=== PATIENT | male | born 1945 | race Caucasian/White ===

== ENCOUNTER 2020-08-21 11:11 | Emergency (ER) | payer OTHER, SELFPAY ==
[2020-08-21] MEDS ORDERED: NA CHLORIDE 0.9% 500 ML ONE (12:35)
[2020-08-21 12:52] LABS: Absolute Lymphocytes (CBC) 1.6 K/uL (0.7-4.9); Basophils % 0.5 % (0-1.3); Hematocrit 51.1 % (39.6-49.0); Lymphocytes % 19.6 % (15.3-44.8); MPV 9.1 fL (7.6-11.3); RBC Red Blood Cell Count 5.77 M/uL (4.33-5.43)
[2020-08-21 13:00] LABS: Albumin 4.3 g/dL (3.4-5.0); Bilirubin Direct 0.2 mg/dL (0-0.2); Bilirubin Total 0.9 mg/dL (0.2-1.0); Protein, Total 8.1 g/dL (6.4-8.2)
--- NOTE | 2020-08-21 13:09 | RAD REPORT ---
EXAM DESCRIPTION: CT - Abdomen Pelvis W Contrast - 08/21/2020 12:47 pm CLINICAL HISTORY: Abdominal pain COMPARISON: none. TECHNIQUE: Computed axial tomography of the abdomen pelvis was obtained. 100 cc Isovue-300 was admin istered intravenously. Oral contrast was not requested which limits evaluation of bowel. All CT scans are performed using dose optimization technique as appropriate and may include automated exposure control or mA/KV adjustment according to patient size. FINDINGS: Hepatic cysts. The largest measures 24 millimeters Spleen, pancreas and left adrenal unremarkable. 18 millimeter right adrenal mass. Small renal cysts. Small bilateral nonobstructing renal calculi Mild enlargement of the prostate gland. Diverticula stem from the colon without evidence of diverticulitis. Normal appendix Small to moderate bilateral inguinal hernias contain fat. Spondylosis involves the lumbar spine IMPRESSION: Small to moderate bilateral inguinal hernias 18 millimeter right adrenal mass may represent an adenoma or less likely metastasis. Nonemergent MRI adrenal gland recommended Small bilateral nonobstructing renal calculi
--- NOTE | 2020-08-21 14:15 | RAD REPORT ---
EXAM DESCRIPTION: Andrea Single View08/21/2020 1:41 pm CLINICAL HISTORY: Shortness of breath COMPARISON: none FINDINGS: Mid lungs are mildly hazy bilaterally The heart is normal size IMPRESSION: The lungs are mildly hazy bilaterally probably secondary to overlying soft tissue. If patricia esposito has clinical symptoms to suggest bilateral infiltrate then PA and lateral chest series would be recommended
[2020-08-21 15:58] LABS: Urine Bacteria <20 /HPF (NONE SEEN); Urine Culture Reflex Order NOT NEEDED; Urine RBC <5 /HPF (NONE SEEN)
[2020-08-21 16:22] LABS: Urine Blood NEGATIVE (NEG); Urine Glucose NEGATIVE (NEG); Urine Protein NEGATIVE (NEG); Urine Specific Gravity 1.015 (1.005-1.030)
--- NOTE | 2020-08-21 17:04 | RAD REPORT ---
EXAM DESCRIPTION: Andrea Govea And Arnie (2 Views)08/21/2020 3:22 pm CLINICAL HISTORY: Shortness of breath COMPARISON: August 21, 2020 FINDINGS: The lungs appear clear of acute infiltrate. The heart is normal size IMPRESSION: No acute abnormalities displayed
--- NOTE | 2020-08-21 17:12 | EDPHYS ---
Physician Documentation [facility] Name: Ruben Colby Age: 75 yrs Sex: Male : 1945 Arrival Date: 08/21/2020 Time: 11:13 Bed 5 Private MD: ED Physician Jimenez Rushing HPI: 08/21 15:07 This 75 yrs old Male presents to ER via Ambulatory with complaints of rn Abdominal Pain, Groin Pain, Leg Pain. 15:07 The patient presents with abdominal pain in the left lower quadrant, left groin. Onset: rn The symptoms/episode began/occurred 1 week(s) ago. The symptoms radiate to left leg. Associated signs and symptoms: Pertinent positives: fever, shortness of breath, Pertinent negatives: nausea and vomiting, blood in stools, chest pain, constipation, hematuria, nausea, testicular pain, vomiting, vomiting blood. The symptoms are described as achy, burning. Modifying factors: The symptoms are alleviated by nothing, the symptoms are aggravated by touching the area. Severity of pain: At its worst the pain was mild in the emergency department the pain is unchanged. The patient has not experienced similar symptoms in the past. The patient has not recently seen a physician. Reports here for left groin pain that radiates down left leg, no trauma, no vomiting/diarrhea. Noted to have low grade temp here and to be sob when changing to gown. . Historical: - Allergies: 11:33 No Known Allergies; iw - Home Meds: 11:33 Norvasc 10 mg Oral tab 1 tab once daily [Active]; atorvastatin 20 mg oral tab 1 tab iw once daily [Active]; - PMHx: 11:33 Hypertension; Hyperlipidemia; iw - PSHx: 11:33 Knee surgery; Tonsillectomy; iw - Immunization history:: Adult Immunizations not up to date. - Social history:: Smoking status: Patient denies any tobacco usage or history of. - Family history:: not pertinent. - Hospitalizations: : No recent hospitalization is reported. ROS: 15:07 Constitutional: + fever Eyes: Negative for injury, pain, redness, and discharge, ENT: rn Negative for injury, pain, and discharge, Cardiovascular: Negative for chest pain, palpitations, and edema, Respiratory: + sob Abdomen/GI: Negative for nausea, vomiting, diarrhea, and constipation, Back: Negative for injury and pain, MS/Extremity: Negative for injury and deformity, Skin: Negative for injury, rash, and discoloration, Neuro: Negative for headache, weakness, numbness, tingling, and seizure. Exam: 15:07 Constitutional: This is a well developed, well nourished patient who is awake, alert, rn and in no acute distress. Head/Face: Normocephalic, atraumatic. Cardiovascular: Tachycardic, regular Respiratory: No increased work of breathing, no retractions or nasal flaring. Abdomen/GI: soft, mild LLQ tenderness and left groin tenderness, no mass palpated, no skin changes Skin: Warm, dry MS/ Extremity: Pulses equal, no cyanosis. Neurovascular intact. Neuro: Awake and alert, GCS 15 Vital Signs: 11:29 BP 136 / 90; Pulse 112; Resp 18 S; Temp 99.3; Pulse Ox 95% on R/A; iw 11:40 BP 108 / 60; Pulse 75; Resp 17; Pulse Ox 97% on R/A; tw2 12:40 BP 160 / 94; Pulse 87; Resp 20; Pulse Ox 97% on R/A; tw2 13:40 BP 152 / 90; Pulse 84; Resp 20; Pulse Ox 95% on R/A; tw2 14:40 BP 137 / 88; Pulse 84; Resp 20; Pulse Ox 97% on R/A; tw2 15:40 BP 148 / 82; Pulse 89; Resp 20; Pulse Ox 95% on R/A; tw2 16:40 BP 142 / 79; Pulse 90; Resp 20; Pulse Ox 97% on R/A; tw2 17:19 BP 134 / 87; Pulse 84; Resp 19; Pulse Ox 97% on R/A; tw2 MDM: 11:42 Patient medically screened. rn 17:09 Differential diagnosis: diverticulitis, non-specific abd pain, Ureterolithiasis, rn urinary tract infection, kidney stone, hernia, viral syndrome, bronchitis. Data reviewed: vital signs, nurses notes, lab test result(s), radiologic studies, CT scan, plain films, and as a result, I will discharge patient. Counseling: I had a detailed discussion with the patient and/or guardian regarding: the historical points, exam findings, and any diagnostic results supporting the discharge/admit diagnosis, lab results, radiology results, the need for outpatient follow up, to return to the emergency department if symptoms worsen or persist or if there are any questions or concerns that arise at home. Special discussion: Based on the patient's Hx, exam, and Dx evaluation, there is no indication for emergent surgery or inpatient Tx. It is understood by the patient/guardian that if the Sx's persist or worsen they need to return immediately for re-evaluation. I discussed with the patient/guardian in detail that at this point there is no indication for admission to the hospital. It is understood, however, that if the symptoms persist or worsen the patient needs to return immediately for re-evaluation. Further emergent ED testing is not indicated at this point in time. I discussed with the patient/guardian in detail the need to arrange with the PCP or specialist further outpatient testing, MRI, Based on the history and exam findings, there is no indication for further emergent testing or inpatient evaluation. I discussed with the patient/guardian the need to see the general surgeon for further evaluation of the symptoms. I discussed with the patient/guardian the need to see the primary care provider for further evaluation of the symptoms. ED course: Notified of incidental adrenal gland finding, + inguinal hernias that explains patient's symptoms that he presented for today, neg cxr, most likely coming down with something, covid sent, will dc home with gen surg f/u, pcp f/u, and return precautions. . 08/21 11:57 Order name: CBC with Diff; Complete Time: 14:44 08/21 11:57 Order name: Basic Metabolic Panel; Complete Time: 14:44 08/21 11:57 Order name: COVID-19; Complete Time: 16:43 rn 08/21 11:57 Order name: Flu; Complete Time: 15:30 rn 08/21 11:57 Order name: Hepatic Function; Complete Time: 14:44 08/21 11:57 Order name: Lipase; Complete Time: 14:44 08/21 11:57 Order name: CT Abd/Pelvis - IV Contrast Only; Complete Time: 14:44 08/21 11:57 Order name: Procalcitonin; Complete Time: 14:44 08/21 11:57 Order name: Lactate; Complete Time: 14:44 08/21 11:57 Order name: BNP; Complete Time: 14:44 08/21 11:57 Order name: Urine Culture rn 08/21 11:57 Order name: Urine Microscopic Only; Complete Time: 16:11 rn 08/21 13:12 Order name: CREATININE WHOLE BLOOD; Complete Time: 14:44 EDMS 08/21 15:20 Order name: Urine Dipstick--Ancillary (enter results); Complete Time: 16:43 bd 08/21 11:57 Order name: IV Start; Complete Time: 12:31 rn 08/21 11:57 Order name: Labs collected and sent; Complete Time: 12:31 rn 08/21 11:57 Order name: XRAY Chest (1 view); Complete Time: 14:44 rn 08/21 11:57 Order name: Urine Dipstick-Ancillary (obtain specimen); Complete Time: 17:18 rn 08/21 14:45 Order name: XRAY Chest Pa And Lat (2 Views); Complete Time: 17:09 rn Administered Medications: 13:00 Drug: NS 0.9% 500 ml Route: IV; Rate: bolus; Site: left wrist; jl7 13:45 Follow up: Response: No adverse reaction; IV Status: Completed infusion; IV Intake: jl7 500ml Disposition: 08/21/20 17:11 Discharged to Home. Impression: Bilateral inguinal hernia, without obstruction or gangrene, Fever, unspecified. - Condition is Stable. - Discharge Instructions: Fever, Adult, Inguinal Hernia, Adult. - Prescriptions for Zithromax Z- Juan Pablo 250 mg Oral Tablet - take 1 tablet by ORAL route as directed for 5 days Day 1 - take two (2) tablets one time. Day 2, 3, 4 , 5 take one (1) tablet once daily.; 6 tablet. - Medication Reconciliation Form, Thank You Letter, Antibiotic Education, Prescription Opioid Use form. - Follow up: Private Physician; When: As needed; Reason: Recheck today's complaints, Re-evaluation by your physician. Follow up: Khris Lisa MD; When: As needed; Reason: Recheck today's complaints, Re-evaluation by your physician. - Problem is new. - Symptoms have improved. Signatures: Dispatcher [employer] EDCT Marie Turcios RN RN iw Nieto, Roman, MD MD rn Leal, Jahala, RN RN jl7 Corrections: (The following items were deleted from the chart) 17:17 17:11 08/21/2020 17:11 Discharged to Home. Impression: Bilateral inguinal hernia, rn without obstruction or gangrene; Fever, unspecified. Condition is Stable. Forms are Medication Reconciliation Form, Thank You Letter, Antibiotic Education, Prescription Opioid Use. Follow up: Private Physician; When: As needed; Reason: Recheck today's complaints, Re-evaluation by your physician. Problem is new. Symptoms have improved. rn 17:30 17:17 08/21/2020 17:11 Discharged to Home. Impression: Bilateral inguinal hernia, jl7 without obstruction or gangrene; Fever, unspecified. Condition is Stable. Discharge Instructions: Fever, Adult, Inguinal Hernia, Adult. Prescriptions for Zithromax Z-Juan Pablo 250 mg Oral Tablet - take 1 tablet by ORAL route as directed for 5 days Day 1 - take two (2) tablets one time. Day 2, 3, 4 , 5 take one (1) tablet once daily.; 6 tablet. and Forms are Medication Reconciliation Form, Thank You Letter, Antibiotic Education, Prescription Opioid Use. Follow up: Private Physician; When: As needed; Reason: Recheck today's complaints, Re-evaluation by your physician. Follow up: Khris Lisa; When: As needed; Reason: Recheck today's complaints, Re-evaluation by your physician. Problem is new. Symptoms have improved. rn
--- NOTE | 2020-08-21 17:12 | ER ---
Nurse's Notes [facility] Name: Ruben Colby Age: 75 yrs Sex: Male : 1945 Arrival Date: 08/21/2020 Time: 11:13 Bed 5 Private MD: Diagnosis: Bilateral inguinal hernia, without obstruction or gangrene;Fever, unspecified Presentation: 08/21 11:29 Chief complaint: Patient states: has pain in left groin area, feels like burning and iw numbness toward his knee, started a week ago, also has pain in lower abdomen, joints are achy. Coronavirus screen: Ebola Screen: Patient negative for fever greater than or equal to 101.5 degrees Fahrenheit, and additional compatible Ebola Virus Disease symptoms Patient denies exposure to infectious person. Patient denies travel to an Ebola-affected area in the 21 days before illness onset. No symptoms or risks identified at this time. Initial Sepsis Screen: Does the patient meet any 2 criteria? No. Patient's initial sepsis screen is negative. Does the patient have a suspected source of infection? No. Patient's initial sepsis screen is negative. Risk Assessment: Do you want to hurt yourself or someone else? Patient reports no desire to harm self or others. Onset of symptoms was August 14, 2020. 11:29 Method Of Arrival: Ambulatory iw 11:29 Acuity: PHIL 4 iw 11:29 Acuity: PHIL 3 iw 11:31 Coronavirus screen: At this time, the client does not indicate any symptoms associated iw with coronavirus-19. 11:39 Chief complaint: Patient states: pt also states he has had SOB for the past week also. iw Historical: - Allergies: 11:33 No Known Allergies; iw - Home Meds: 11:33 Norvasc 10 mg Oral tab 1 tab once daily [Active]; atorvastatin 20 mg oral tab 1 tab iw once daily [Active]; - PMHx: 11:33 Hypertension; Hyperlipidemia; iw - PSHx: 11:33 Knee surgery; Tonsillectomy; iw - Immunization history:: Adult Immunizations not up to date. - Social history:: Smoking status: Patient denies any tobacco usage or history of. - Family history:: not pertinent. - Hospitalizations: : No recent hospitalization is reported. Screenin:00 Abuse screen: Denies threats or abuse. Denies injuries from another. Nutritional jl7 screening: No deficits noted. Tuberculosis screening: No symptoms or risk factors identified. Fall Risk IV access (20 points). Assessment: 11:42 Reassessment: pt became SOB when he was changing into his gown, SpO2 dropped to 87%, pt iw stated he has been having SOB for past week. 12:30 General: Appears in no apparent distress. uncomfortable, Behavior is calm, cooperative, jl7 appropriate for age. Pain: Complains of pain in left leg. Neuro: Level of Consciousness is awake, alert, obeys commands, Oriented to person, place, time, situation. Cardiovascular: Patient's skin is warm and dry. Respiratory: Airway is patent Respiratory effort is even, unlabored, Respiratory pattern is regular, symmetrical. GI: Abdomen is non-distended. Derm: Skin is pink, warm \T\ dry. 13:30 Reassessment: Patient appears in no apparent distress at this time. No changes from jl7 previously documented assessment. Patient and/or family updated on plan of care and expected duration. Pain level reassessed. Patient is alert, oriented x 3, equal unlabored respirations, skin warm/dry/pink. 14:30 Reassessment: Patient appears in no apparent distress at this time. No changes from jl7 previously documented assessment. Patient and/or family updated on plan of care and expected duration. Pain level reassessed. Patient is alert, oriented x 3, equal unlabored respirations, skin warm/dry/pink. 15:30 Reassessment: Patient appears in no apparent distress at this time. No changes from jl7 previously documented assessment. Patient and/or family updated on plan of care and expected duration. Pain level reassessed. Patient is alert, oriented x 3, equal unlabored respirations, skin warm/dry/pink. 16:30 Reassessment: Patient appears in no apparent distress at this time. No changes from jl7 previously documented assessment. Patient and/or family updated on plan of care and expected duration. Pain level reassessed. Patient is alert, oriented x 3, equal unlabored respirations, skin warm/dry/pink. 17:20 Reassessment: Patient appears in no apparent distress at this time. No changes from tw2 previously documented assessment. Patient and/or family updated on plan of care and expected duration. Pain level reassessed. Patient is alert, oriented x 3, equal unlabored respirations, skin warm/dry/pink. Vital Signs: 11:29 BP 136 / 90; Pulse 112; Resp 18 S; Temp 99.3; Pulse Ox 95% on R/A; iw 11:40 BP 108 / 60; Pulse 75; Resp 17; Pulse Ox 97% on R/A; tw2 12:40 BP 160 / 94; Pulse 87; Resp 20; Pulse Ox 97% on R/A; tw2 13:40 BP 152 / 90; Pulse 84; Resp 20; Pulse Ox 95% on R/A; tw2 14:40 BP 137 / 88; Pulse 84; Resp 20; Pulse Ox 97% on R/A; tw2 15:40 BP 148 / 82; Pulse 89; Resp 20; Pulse Ox 95% on R/A; tw2 16:40 BP 142 / 79; Pulse 90; Resp 20; Pulse Ox 97% on R/A; tw2 17:19 BP 134 / 87; Pulse 84; Resp 19; Pulse Ox 97% on R/A; tw2 ED Course: 11:13 Patient arrived in ED. ag5 11:31 Triage completed. iw 11:33 Arm band placed on. iw 11:42 Jimenez Rushing MD is Attending Physician. rn 12:00 Patient has correct armband on for positive identification. Placed in gown. Bed in low jl7 position. Call light in reach. Side rails up X 1. Pulse ox on. NIBP on. 12:06 Lora Moreno, RN is Primary Nurse. jl7 12:31 Initial lab(s) drawn, by me, sent to lab. Inserted saline lock: 20 gauge in left wrist, em1 using aseptic technique. Blood collected. 12:47 CT Abd/Pelvis - IV Contrast Only In Process Unspecified. EDMS 13:41 XRAY Chest (1 view) In Process Unspecified. EDMS 15:22 XRAY Chest Pa And Lat (2 Views) In Process Unspecified. EDMS 17:17 Khris Lisa MD is Referral Physician. rn 17:29 No provider procedures requiring assistance completed. IV discontinued, intact, jl7 bleeding controlled, No redness/swelling at site. Pressure dressing applied. Administered Medications: 13:00 Drug: NS 0.9% 500 ml Route: IV; Rate: bolus; Site: left wrist; jl7 13:45 Follow up: Response: No adverse reaction; IV Status: Completed infusion; IV Intake: jl7 500ml Intake: 13:45 IV: 500ml; Total: 500ml. jl7 Outcome: 17:11 Discharge ordered by . rn 17:29 Discharged to home ambulatory. shukri 17:29 Condition: stable 17:29 Discharge instructions given to patient, Instructed on discharge instructions, follow up and referral plans. medication usage, Demonstrated understanding of instructions, follow-up care, medications, Prescriptions given X 1. 17:30 Patient left the ED. jl7 Addendum: 08/23/2020 07:34 Addendum: COVID-19 Result: Negative result given to RN to notify pt. Attempted to s s contact pt regarding negative COVID-19 swab results. Left voice mail. Signatures: Dispatcher [employer] Marie Chavarria, RN ANCELMO Jimenez Rushing MD MD rn Martinez, Eric em1 Nida Browne RN RN Zenobia Latif RN RN 2 Lora Moreno RN RN jl7 Walter Pickett ag5 Corrections: (The following items were deleted from the chart) 08/21 11:32 11:29 Ebola Screen: Patient negative for fever greater than or equal to 101.5 degrees iw Fahrenheit, and additional compatible Ebola Virus Disease symptoms Patient denies exposure to infectious person. Patient denies travel to an Ebola-affected area in the 21 days before illness onset. No symptoms or risks identified at this time. iw
[2020-08-21 22:48] VITALS: TEMP 99.3
[2020-08-21 22:57] VITALS: O2SAT 97
[2020-08-21 22:59] VITALS: BP 134/87
== END 2020-08-21 17:30 | disposition home or self-care (01) ==
LOC: ER 11:11
DX: K40.20 Bilateral inguinal hernia, without obstruction or gangrene, not specified as recurrent (principal); R50.9 Fever, unspecified; Z20.828 Contact with and (suspected) exposure to other viral communicable diseases; I10 Essential (primary) hypertension
CPT/HCPCS: 87088; 85025; 87086; 80048; 36415; 82565; 80076; 83605; 83690; 84145; 83880; 87804 ×2; 74177; 71045; 71046; 96360; 99284; U0002; Q9967; J7040; 81003; 81015

== ENCOUNTER 2020-08-22 15:43 | Emergency (ER) | payer OTHER ==
[2020-08-22 18:04] LABS: Absolute Lymphocytes (CBC) 1.5 K/uL (0.7-4.9); Basophils % 0.3 % (0-1.3); Hematocrit 48.6 % (39.6-49.0); MPV 9.1 fL (7.6-11.3); RBC Red Blood Cell Count 5.54 M/uL (4.33-5.43)
[2020-08-22 18:14] LABS: Albumin 4.2 g/dL (3.4-5.0); Bilirubin Direct 0.2 mg/dL (0-0.2); Bilirubin Total 0.9 mg/dL (0.2-1.0); Potassium 4.1 mmol/L (3.5-5.1); Protein, Total 7.7 g/dL (6.4-8.2)
[2020-08-22] MEDS ORDERED: MORPHINE 2 MG/ML SYR ONE (18:15)
[2020-08-22] MEDS ORDERED: ONDANSETRON 4 MG/2 ML VIAL ONE (18:15)
[2020-08-22] MEDS ORDERED: ACETAMINOPHEN 325 MG TABLET ONE (18:21)
--- NOTE | 2020-08-22 19:37 | RAD REPORT ---
EXAM DESCRIPTION: MRI - Lumbar Spine Wo Con- 08/22/2020 7:26 pm CLINICAL HISTORY: leg numbness, weakness Radiculopathy COMPARISON: No comparisons FINDINGS: Vertebral body heights are within normal limits. Diffuse disc desiccation. No fracture is suspected. The conus medullaris terminates at a normal level. No thickening of the cauda equina or clumping of n erve roots seen. L1-2 level: Mild posterior disc bulge is present without canal or foraminal stenosis. L2-3 level: Disc thinning with mild posterior disc bulge with mild facet hypertrophy. No canal or for aminal stenosis. L3-4 level: Broad-based posterior disc bulge is present with moderate facet and ligamentum flavum hyp ertrophy. Mild central canal narrowing is present. No significant exit foraminal stenosis. L4-5 level: Degenerative disc disease with moderate posterior disc bulge with marked facet and ligame nt flavum hypertrophy. Findings result in moderate to significant central canal stenosis and bilatera l lateral recess narrowing. Moderate bilateral exit foraminal narrowing. L5-S1 level: Degenerative anterolisthesis is present with evidence of significant facet and ligamentu m flavum hypertrophy. Mild central canal narrowing is present moderate right-sided exit foraminal jewels nosis. IMPRESSION: Moderately severe lower lumbar degenerative changes are present, most notable at L3-4 an d L4-5.
--- NOTE | 2020-08-22 19:55 | ER ---
Nurse's Notes [facility] Name: Ruben Colby Age: 75 yrs Sex: Male : 1945 Arrival Date: 08/22/2020 Time: 15:44 Bed 17 Private MD: Diagnosis: Sciatica, unspecified side Presentation: 08/22 16:01 Chief complaint: Patient states: "my hips and my legs through my butt and feet are jd3 feeling numb and are painful and it started yesterday. I was here because of a hernias and lung infection yesterday and that's why I feel like my feet and legs are tingling and maybe I am not getting enough blood flow with those hernias. Coronavirus screen: cough unrelated to allergies, fever, Client presents with at least one sign or symptom that may indicate coronavirus-19. Standard/surgical mask placed on the client. Provider contacted for isolation considerations. Ebola Screen: Patient negative for fever greater than or equal to 101.5 degrees Fahrenheit, and additional compatible Ebola Virus Disease symptoms. Initial Sepsis Screen: Does the patient meet any 2 criteria? No. Patient's initial sepsis screen is negative. Does the patient have a suspected source of infection? No. Patient's initial sepsis screen is negative. Risk Assessment: Do you want to hurt yourself or someone else? Patient reports no desire to harm self or others. Onset of symptoms was August 22, 2020. 16:01 Method Of Arrival: Ambulatory jd3 16:01 Acuity: PHIL 3 jd3 16:08 Note home medications taken at 0800 today, Ibuprofen taken at 1200. jd3 Historical: - Allergies: 16:05 No Known Allergies; jd3 - Home Meds: 16:05 atorvastatin 20 mg Oral tab 1 tab once daily [Active]; Norvasc 10 mg Oral tab 1 tab jd3 once daily [Active]; - PMHx: 16:05 Hyperlipidemia; Hypertension; jd3 - PSHx: 16:05 Tonsillectomy; Knee surgery; jd3 - Immunization history:: Adult Immunizations up to date. - Social history:: Smoking status: Patient denies any tobacco usage or history of. Screenin:20 Abuse screen: Denies threats or abuse. Nutritional screening: No deficits noted. rb3 Tuberculosis screening: No symptoms or risk factors identified. Fall Risk None identified. Assessment: 16:20 General: Appears in no apparent distress. comfortable, Behavior is calm, cooperative. rb3 Neuro: Level of Consciousness is awake, alert, obeys commands, Oriented to person, place, time, situation, Reports numbness in buttocks, legs, and hips. Cardiovascular: Capillary refill < 3 seconds Patient's skin is warm and dry. Respiratory: Airway is patent Respiratory effort is even, unlabored, Respiratory pattern is regular, symmetrical. GI: No signs and/or symptoms were reported involving the gastrointestinal system. : Reports he has to concentrate in order to urinate. Musculoskeletal: Range of motion: intact in all extremities. 17:20 Reassessment: Patient appears in no apparent distress at this time. No changes from rb3 previously documented assessment. 18:12 Reassessment: Patient appears in no apparent distress at this time. Patient and/or rb3 family updated on plan of care and expected duration. Pain level reassessed. Patient is alert, oriented x 3, equal unlabored respirations, skin warm/dry/pink. 20:27 Reassessment: Patient appears in no apparent distress at this time. Patient and/or jd3 family updated on plan of care and expected duration. Pain level reassessed. Patient is alert, oriented x 3, equal unlabored respirations, skin warm/dry/pink. Patient states feeling better. 20:27 Pain: Denies pain. jd3 Vital Signs: 16:05 BP 124 / 84; Pulse 100; Resp 19 S; Temp 98.7(O); Pulse Ox 95% on R/A; Weight 95.25 kg jd3 (R); Height 5 ft. 6 in. (167.64 cm) (R); Pain 3/10; 17:00 BP 155 / 94; Pulse 91; Resp 18; Pulse Ox 97% ; rb3 17:57 BP 148 / 61; Pulse 95; Resp 19; Pulse Ox 95% ; rb3 18:15 BP 146 / 87; Pulse 99; Resp 20; Pulse Ox 95% ; rb3 16:05 Body Mass Index 33.89 (95.25 kg, 167.64 cm) jd3 ED Course: 15:44 Patient arrived in ED. as 16:04 Triage completed. jd3 16:08 Arm band placed on. [facility] 16:20 Ruben Hall PA is PHCP. [facility] 16:20 Joby Alston MD is Attending Physician. m 16:20 Patient has correct armband on for positive identification. Placed in gown. Bed in low rb3 position. Call light in reach. Side rails up X 1. Pulse ox on. NIBP on. Warm blanket given. 16:29 Madonna Lott, RN is Primary Nurse. rb3 17:40 Inserted saline lock: 20 gauge in left antecubital area, using aseptic technique. rb3 ,using aseptic technique. IV inserted by [employer] operator. Blood collected. 19:26 MRI Lumbar Spine wo Con In Process Unspecified. EDMS 20:25 No provider procedures requiring assistance completed. IV discontinued, intact, jd3 bleeding controlled, No redness/swelling at site. Pressure dressing applied. Administered Medications: 18:05 Drug: Zofran (Ondansetron) 4 mg Route: IVP; Site: left antecubital; rb3 19:00 Follow up: Response: No adverse reaction jd3 18:11 Drug: Tylenol 650 mg Route: PO; rb3 19:00 Follow up: Response: No adverse reaction jd3 18:12 Not Given (Patient Refused): morphine 2 mg IVP once; (PAIN>8) RASS on ADMN: Combtv4, rb3 Very Agttd3, Agttd2, Rstlss1, AlertClm0, Drwsy-1, LtSdtn-2, ModSdtn-3, DpSdtn-4, UnArsble-5 x2 20:24 Drug: Decadron - Dexamethasone 10 mg Route: IVP; Site: left antecubital; jd3 20:28 Follow up: Response: No adverse reaction jd3 Outcome: 19:55 Discharge ordered by . [facility] 20:27 Discharged to home ambulatory. jd3 20:27 Condition: stable 20:27 Discharge instructions given to patient, Instructed on discharge instructions, follow up and referral plans. medication usage, Demonstrated understanding of instructions, follow-up care, medications, Prescriptions given X 2. 20:28 Patient left the ED. jd3 Signatures: Dispatcher [employer] EDMS Ruben Hall PA PA jmm Martinez, Amelia as Davies, Jonathon, RN RN jd3 Madonna Lott, ANCELMO RN rb3 Corrections: (The following items were deleted from the chart) 16:04 16:01 Chief complaint: Patient states: "my hips and my legs through my butt and feet jd3 are feeling numb and are painful. I was here because of a hernias and lung infection yesterday and that's why I feel like my feet and legs are tingling and maybe I am not getting enough blood flow with those hernias jd3 16:09 16:08 Note home medications taken at 0800 today jd3 jd3
--- NOTE | 2020-08-22 19:56 | EDPHYS ---
Physician Documentation [facility] Name: Ruben Colby Age: 75 yrs Sex: Male : 1945 Arrival Date: 08/22/2020 Time: 15:44 Bed 17 Private MD: ED Physician Joby Alston HPI: 08/22 16:21 This 75 yrs old Male presents to ER via Ambulatory with complaints of jmm Numbness. 16:21 The patient presents with numbness. Onset: The symptoms/episode began/occurred 1 day(s) jmm ago. Modifying factors: The symptoms are alleviated by nothing. the symptoms are aggravated by nothing. This is a 75 year old male with a history of hlp, htn that presents to the ED with complaints of numbness to his legs along with bilateral hip pain beginning yesterday. patient was seen for abdominal pain yesterday and diagnosed with bilateral hernias. Patient states having a follow up appt with Dr. Lisa tomorrow morning. Patient states he has had difficulty urinating. Denies any leg weakness. . Historical: - Allergies: 16:05 No Known Allergies; jd3 - Home Meds: 16:05 atorvastatin 20 mg Oral tab 1 tab once daily [Active]; Norvasc 10 mg Oral tab 1 tab jd3 once daily [Active]; - PMHx: 16:05 Hyperlipidemia; Hypertension; jd3 - PSHx: 16:05 Tonsillectomy; Knee surgery; jd3 - Immunization history:: Adult Immunizations up to date. - Social history:: Smoking status: Patient denies any tobacco usage or history of. ROS: 16:21 Constitutional: Negative for fever, chills, and weight loss, Cardiovascular: Negative jmm for chest pain, palpitations, and edema, Respiratory: Negative for shortness of breath, cough, wheezing, and pleuritic chest pain. 16:21 Abdomen/GI: Positive for abdominal pain. 16:21 MS/extremity: Positive for pain. 16:21 All other systems are negative. Exam: 16:21 Constitutional: This is a well developed, well nourished patient who is awake, alert, jmm and in no acute distress. Head/Face: atraumatic. Eyes: EOMI, no conjunctival erythema appreciated ENT: Moist Mucus Membranes Neck: Trachea midline, Supple Chest/axilla: Normal chest wall appearance and motion. Cardiovascular: Regular rate and rhythm. No edema appreciated Respiratory: Normal respirations, no respiratory distress appreciated 16:21 Abdomen/GI: Inspection: abdomen appears normal, Palpation: soft. 16:21 Back: ROM is normal. 16:21 Musculoskeletal/extremity: ROM: intact in all extremities. 16:21 Skin: Appearance: Color: normal in color. 16:21 Neuro: extensor hallucis longus intact bilaterally. 16:21 Psych: Behavior/mood is pleasant, cooperative. Vital Signs: 16:05 BP 124 / 84; Pulse 100; Resp 19 S; Temp 98.7(O); Pulse Ox 95% on R/A; Weight 95.25 kg jd3 (R); Height 5 ft. 6 in. (167.64 cm) (R); Pain 3/10; 17:00 BP 155 / 94; Pulse 91; Resp 18; Pulse Ox 97% ; rb3 17:57 BP 148 / 61; Pulse 95; Resp 19; Pulse Ox 95% ; rb3 18:15 BP 146 / 87; Pulse 99; Resp 20; Pulse Ox 95% ; rb3 16:05 Body Mass Index 33.89 (95.25 kg, 167.64 cm) jd3 MDM: 16:21 Patient medically screened. jude 19:49 Data reviewed: vital signs, nurses notes. Counseling: I had a detailed discussion with franko the patient and/or guardian regarding: the historical points, exam findings, and any diagnostic results supporting the discharge/admit diagnosis, radiology results, the need for outpatient follow up, to return to the emergency department if symptoms worsen or persist or if there are any questions or concerns that arise at home. ED course: Patient is alert and non toxic in appearance in the ED. Patient advised to follow up with pcp for reevaluation. Pain most likely due to radiculopathy. Patient otherwise given strict return precautions. Patient understood and agrees with the plan of care. . 08/22 16:40 Order name: Basic Metabolic Panel; Complete Time: 18:20 [facility] 08/22 16:40 Order name: CBC with Diff; Complete Time: 18:20 [facility] 08/22 16:40 Order name: Hepatic Function; Complete Time: 18:20 [facility] 08/22 16:40 Order name: Lipase; Complete Time: 18:20 [facility] 08/22 16:42 Order name: Lactate; Complete Time: 18:20 [facility] 08/22 16:42 Order name: Blood Culture Adult (2) [facility] 08/22 16:40 Order name: MRI Lumbar Spine wo Con; Complete Time: 19:44 [facility] 08/22 16:40 Order name: IV Saline Lock; Complete Time: 17:53 [facility] 08/22 16:42 Order name: Procalcitonin; Complete Time: 19:19 [facility] 08/22 18:00 Order name: ESR; Complete Time: 18:54 [facility] 08/22 16:40 Order name: Labs collected and sent; Complete Time: 17:53 [facility] Administered Medications: 18:05 Drug: Zofran (Ondansetron) 4 mg Route: IVP; Site: left antecubital; rb3 19:00 Follow up: Response: No adverse reaction jd3 18:11 Drug: Tylenol 650 mg Route: PO; rb3 19:00 Follow up: Response: No adverse reaction jd3 18:12 Not Given (Patient Refused): morphine 2 mg IVP once; (PAIN>8) RASS on ADMN: Combtv4, rb3 Very Agttd3, Agttd2, Rstlss1, AlertClm0, Drwsy-1, LtSdtn-2, ModSdtn-3, DpSdtn-4, UnArsble-5 x2 20:24 Drug: Decadron - Dexamethasone 10 mg Route: IVP; Site: left antecubital; jd3 20:28 Follow up: Response: No adverse reaction jd3 Disposition: 08/23 06:02 Co-signature as Attending Physician, Joby Alston MD I agree with the assessment and jude plan of care. Disposition: 08/22/20 19:55 Discharged to Home. Impression: Sciatica, unspecified side. - Condition is Stable. - Discharge Instructions: Sciatica. - Prescriptions for Ultracet 37.5- 325 mg Oral Tablet - take 1 tablet by ORAL route every 6 hours - for up to 5 days; do not exceed 8 tablets per day.; 20 tablet. orphenadrine citrate 100 mg Oral Tablet Sustained Release - take 1 tablet by ORAL route 2 times per day As needed; 20 tablet. - Medication Reconciliation Form, Thank You Letter, Antibiotic Education, Prescription Opioid Use, SBAR form form. - Follow up: Private Physician; When: 2 - 3 days; Reason: Recheck today's complaints, Continuance of care, Re-evaluation by your physician. Signatures: Dispatcher [employer] EDJoby Rose MD MD cha Mickail, Joel, PA PA jmm Davies, Jonathon RN RN jd3 Madonna Lott RN RN rb3 Corrections: (The following items were deleted from the chart) 08/22 20:28 19:55 08/22/2020 19:55 Discharged to Home. Impression: Sciatica, unspecified side. jd3 Condition is Stable. Forms are SBAR form, Medication Reconciliation Form, Thank You Letter, Antibiotic Education, Prescription Opioid Use. Follow up: Private Physician; When: 2 - 3 days; Reason: Recheck today's complaints, Continuance of care, Re-evaluation by your physician. franko
[2020-08-22] MEDS ORDERED: dexAMETHasone 10 MG/ML VIAL ONE (20:32)
[2020-08-23 11:25] VITALS: TEMP 98.7
[2020-08-23 11:27] VITALS: O2SAT 95
[2020-08-23 11:29] VITALS: BP 146/87
== END 2020-08-22 20:28 | disposition home or self-care (01) ==
LOC: ER 15:43
DX: M54.30 Sciatica, unspecified side (principal); I10 Essential (primary) hypertension; E78.5 Hyperlipidemia, unspecified
CPT/HCPCS: 87040 ×2; 85025; 80048; 36415; 80076; 83605; 85652; 83690; 84145; 72148; 96375; 96374; 99284; J1100; J2405; J2270

== ENCOUNTER 2020-08-25 20:25 | Inpatient (IN) | payer OTHER ==
[2020-08-25] MEDS ORDERED: NA CHLORIDE 0.9% 3,000 ML ONE (21:48)
[2020-08-25] MEDS ORDERED: ACETAMINOPHEN 325 MG TABLET ONE (21:48)
--- NOTE | 2020-08-25 21:50 | RAD REPORT ---
EXAM DESCRIPTION: RAD - Chest Single View - 08/25/2020 9:44 pm CLINICAL HISTORY: Cough;Fever;SOB Chest pain. COMPARISON: Chest Pa And Lat (2 Views) dated 08/21/2020; Chest Single View dated 08/21/2020 FINDINGS: Portable technique limits examination quality. The lungs are grossly clear. The heart is normal in size. No displaced fractures. IMPRESSION: No acute intrathoracic process suspected.
[2020-08-25 22:11] LABS: Absolute Lymphocytes (CBC) 1.5 K/uL (0.7-4.9); Basophils % 0.6 % (0-1.3); Hematocrit 47.9 % (39.6-49.0); Lymphocytes % 12.9 % (15.3-44.8); MPV 9.5 fL (7.6-11.3); RBC Red Blood Cell Count 5.45 M/uL (4.33-5.43)
[2020-08-25 22:15] LABS: Protime INR 1.09
[2020-08-25 22:23] LABS: Albumin 4.4 g/dL (3.4-5.0); Bilirubin Direct 0.3 mg/dL (0-0.2); Bilirubin Total 1.2 mg/dL (0.2-1.0); CKMB Creatine Kinase MB 1.7 ng/mL (0.3-3.6); Protein, Total 8.1 g/dL (6.4-8.2); Troponin (Emerg Dept Use Only) 0.07 ng/mL (0.0-0.045)
[2020-08-25] MEDS ORDERED: Levofloxacin500mg IV 500 MG/100 ML BAG IV ONE (22:44)
--- NOTE | 2020-08-25 23:57 | ER ---
Nurse's Notes [facility] Name: Ruben Colby Age: 75 yrs Sex: Male : 1945 Arrival Date: 08/25/2020 Time: 20:29 Bed 19 Private MD: Diagnosis: Near Syncope;Dyspnea;Hypoxia;Fever;Dehydration Presentation: 08/25 20:53 Chief complaint: Patient states: Weakness with 4 falls today. This has been going on ll1 for 1 week. 3rd visit here this week. States pain is to both arms and chest now. Has worsening cough, almost done with his antibiotic. + SOB with exertion. Coronavirus screen: Client denies travel out of the [place] in the last 14 days. chills, cough unrelated to allergies, difficulty breathing, fatigue, fever, muscle pain, The client reports previous COVID testing was negative. Ebola Screen: Patient denies travel to an Ebola-affected area in the 21 days before illness onset. Initial Sepsis Screen: Does the patient meet any 2 criteria? RR > 20 per min. HR > 90 bpm. Yes Does the patient have a suspected source of infection? Yes: Productive cough/pneumonia. Risk Assessment: Do you want to hurt yourself or someone else? Patient reports no desire to harm self or others. Onset of symptoms was August 18, 2020. 20:53 Method Of Arrival: Wheelchair ll1 20:53 Acuity: PHIL 2 ll1 Historical: - Allergies: 20:57 No Known Allergies; ll1 - PMHx: 20:57 Hypertension; Hyperlipidemia; Hernia; ll1 - PSHx: 20:57 Tonsillectomy; Knee surgery; ll1 - Immunization history:: Flu vaccine is not up to date. - Social history:: Smoking status: Patient denies any tobacco usage or history of. Screenin:00 Abuse screen: Denies threats or abuse. Nutritional screening: No deficits noted. jb4 Tuberculosis screening: No symptoms or risk factors identified. Fall Risk Gait- Impaired (20 pts.). Mental Status- Overestimates/Forgets Limitations (15 pts.). Total Lees Fall Scale indicates High Risk Score (45 or more points). Fall prevention measures have been instituted. Side Rails Up X 2 Placed Close to Nursing Station Frequent Obs/Assessments Occuring Family Present and informed to notify staff if the need to leave the bedside. Assessment: 21:00 General: Appears in no apparent distress. uncomfortable, Behavior is calm, cooperative, jb4 appropriate for age. Pain: Denies pain. Neuro: Level of Consciousness is awake, alert, obeys commands, Oriented to person, place, time, situation. Cardiovascular: Patient's skin is warm and dry. Respiratory: Reports shortness of breath on exertion Airway is patent Respiratory effort is even, labored, Respiratory pattern is symmetrical, tachypnea. GI: No signs and/or symptoms were reported involving the gastrointestinal system. : No signs and/or symptoms were reported regarding the genitourinary system. EENT: No signs and/or symptoms were reported regarding the EENT system. Derm: Skin is intact, Skin is pink, warm \T\ dry. Musculoskeletal: Circulation, motion, and sensation intact. Range of motion: intact in all extremities. 21:00 Reassessment: Pt's O2 is 81% on RA. placed on 2L NC, provider notified. jb4 21:05 Reassessment: Pt O2 increased to 85 on 2L NC, increased to 3L NC. jb4 21:10 Reassessment: Pt O2 88% on 3L NC, increased to 4L NC. jb4 21:15 Reassessment: Pt O2 now 95% on 4L nc. jb4 22:00 Reassessment: Patient appears in no apparent distress at this time. Patient and/or jb4 family updated on plan of care and expected duration. Pain level reassessed. Patient is alert, oriented x 3, equal unlabored respirations, skin warm/dry/pink. 22:45 Reassessment: Patient appears in no apparent distress at this time. Patient and/or jb4 family updated on plan of care and expected duration. Pain level reassessed. Patient is alert, oriented x 3, equal unlabored respirations, skin warm/dry/pink. Admitting physician at bedside. 23:45 Reassessment: Patient appears in no apparent distress at this time. Patient and/or jb4 family updated on plan of care and expected duration. Pain level reassessed. Patient is alert, oriented x 3, equal unlabored respirations, skin warm/dry/pink. 08/26 00:45 Reassessment: Patient appears in no apparent distress at this time. Patient and/or jb4 family updated on plan of care and expected duration. Pain level reassessed. Patient is alert, oriented x 3, equal unlabored respirations, skin warm/dry/pink. Vital Signs: 08/25 20:53 BP 132 / 90; Pulse 132; Resp 24; Temp 100.7; Pulse Ox 98% on R/A; Weight 95.25 kg; ll1 Height 5 ft. 6 in. (167.64 cm); Pain 3/10; 22:26 BP 108 / 80; Pulse 107; Resp 20; Pulse Ox 95% on 4 lpm NC; jb4 23:00 BP 105 / 75; Pulse 96; Resp 17; Temp 99.2(O); Pulse Ox 97% on 4 lpm NC; jb4 23:56 BP 117 / 82; Pulse 89; Resp 18; Pulse Ox 99% on 4 lpm NC; jb4 08/26 00:55 BP 126 / 92; Pulse 85; Resp 16; Pulse Ox 98% on 4 lpm NC; jb4 08/25 20:53 Body Mass Index 33.89 (95.25 kg, 167.64 cm) ll1 ED Course: 08/25 20:29 Patient arrived in ED. bp1 20:56 Triage completed. ll1 20:57 Arm band placed on Patient placed in an exam room, on a stretcher. ll1 20:58 Jayden Abreu MD is Attending Physician. mh7 21:00 Patient has correct armband on for positive identification. Placed in gown. Bed in low jb4 position. Call light in reach. Side rails up X 1. 21:33 Khris Moreau, RN is Primary Nurse. jb4 21:44 Chest Single View XRAY In Process Unspecified. EDMS 21:45 Inserted saline lock: 18 gauge in right antecubital area, using aseptic technique. jb4 Blood collected. 21:45 Initial lab(s) drawn, by hi, sent to lab. First set of blood cultures drawn by hi. jb4 22:00 Second set of blood cultures drawn by hi. jb4 22:21 CT Head Brain wo Cont In Process Unspecified. EDMS 23:40 PT DC'd own IV. jb4 23:45 Inserted saline lock: 18 gauge in right hand, using aseptic technique. jb4 23:55 Jez Alonso is Hospitalizing Provider. mh7 23:55 Notified ED physician of a critical lab result(s). D-Dimer 1190. jb4 08/26 01:06 No provider procedures requiring assistance completed. Patient admitted, IV remains in jb4 place. Administered Medications: 08/25 21:45 Drug: NS 0.9% (30 ml/kg) 30 ml/kg Route: IV; Rate: bolus; Site: right antecubital; jb4 08/26 00:45 Follow up: Response: No adverse reaction; IV Status: Completed infusion; IV Intake: jb4 2857ml 08/25 21:45 Drug: Tylenol 650 mg Route: PO; jb4 22:45 Follow up: Response: No adverse reaction; Temperature is decreased jb4 22:36 Drug: LevaQUIN 500 mg Volume: 100 ml; Route: IVPB; Infused Over: 60 mins; Site: right jb4 antecubital; 23:36 Follow up: Response: No adverse reaction; IV Status: Completed infusion; IV Intake: jb4 100ml Intake: 23:36 IV: 100ml; Total: 100ml. jb4 08/26 00:45 IV: 2857ml; Total: 2957ml. [facility] Outcome: 08/25 23:56 Decision to Hospitalize by Provider. [facility] 08/26 01:06 Admitted to Med/surg accompanied by tech, via stretcher, room 225, with oxygen, with [facility] chart. Condition: stable Discharge instructions given to patient, Instructed on the need for admit, Demonstrated understanding of instructions. 01:47 Patient left the ED. Signatures: Dispatcher [employer] EDMS Khris Moreau RN RN jb4 Biju Lopez Kathleen Rodrigues RN RN 1 Margo Last Maurice, MD MD 7 Corrections: (The following items were deleted from the chart) 08/25 23:31 21:00 Respiratory: Reports shortness of breath on exertion Airway is patent Respiratory jb4 effort is even, labored, Respiratory pattern is symmetrical, tachypnea jb4
--- NOTE | 2020-08-25 23:57 | EDPHYS ---
Physician Documentation [facility] Name: Ruben Colby Age: 75 yrs Sex: Male : 1945 Arrival Date: 08/25/2020 Time: 20:29 Bed 19 Private MD: ED Physician Jayden Abreu HPI: 08/25 23:44 This 75 yrs old Male presents to ER via Wheelchair with complaints of General mh7 Weakness. 23:46 The patient has shortness of breath with light activity. Onset: The symptoms/episode mh7 began/occurred 2 day(s) ago. Duration: The symptoms are intermittent, with no pattern. The patient's shortness of breath is aggravated by coughing, exertion, is alleviated by nothing. Associated signs and symptoms: Pertinent positives: non-productive cough, dizziness, fever, generalized weakness, Pertinent negatives: chest pain, diaphoresis, hemoptysis, loss of consciousness, nausea, numbness in extremities, visual changes, vomiting. Severity of symptoms: At their worst the symptoms were moderate today, in the emergency department the symptoms are unchanged. The patient has been recently seen at the [facility] Emergency Department, this week. Historical: - Allergies: 20:57 No Known Allergies; ll1 - PMHx: 20:57 Hypertension; Hyperlipidemia; Hernia; ll1 - PSHx: 20:57 Tonsillectomy; Knee surgery; ll1 - Immunization history:: Flu vaccine is not up to date. - Social history:: Smoking status: Patient denies any tobacco usage or history of. ROS: 23:46 Eyes: Negative for injury, pain, redness, and discharge, ENT: Negative for injury, mh7 pain, and discharge, Neck: Negative for injury, pain, and swelling, Cardiovascular: Negative for chest pain, palpitations, and edema, Abdomen/GI: Negative for abdominal pain, nausea, vomiting, diarrhea, and constipation, Back: Negative for injury and pain, : Negative for injury, bleeding, discharge, and swelling, MS/Extremity: Negative for injury and deformity, Skin: Negative for injury, rash, and discoloration, Psych: Negative for depression, anxiety, suicide ideation, homicidal ideation, and hallucinations, Allergy/Immunology: Negative for hives, rash, and allergies, Endocrine: Negative for neck swelling, polydipsia, polyuria, polyphagia, and marked weight changes, Hematologic/Lymphatic: Negative for swollen nodes, abnormal bleeding, and unusual bruising. Exam: 23:51 Head/Face: Normocephalic, atraumatic. Eyes: Pupils equal round and reactive to light, mh7 extra-ocular motions intact. Lids and lashes normal. Conjunctiva and sclera are non-icteric and not injected. Cornea within normal limits. Periorbital areas with no swelling, redness, or edema. Neck: Trachea midline, no thyromegaly or masses palpated, and no cervical lymphadenopathy. Supple, full range of motion without nuchal rigidity, or vertebral point tenderness. No Meningismus. Chest/axilla: Normal chest wall appearance and motion. Nontender with no deformity. No lesions are appreciated. 23:51 Abdomen/GI: Soft, non-tender, with normal bowel sounds. No distension or tympany. No guarding or rebound. No evidence of tenderness throughout. Back: No spinal tenderness. No costovertebral tenderness. Full range of motion. Skin: Warm, dry with normal turgor. Normal color with no rashes, no lesions, and no evidence of cellulitis. MS/ Extremity: Pulses equal, no cyanosis. Neurovascular intact. Full, normal range of motion. Neuro: Awake and alert, GCS 15, oriented to person, place, time, and situation. Cranial nerves II-XII grossly intact. Motor strength 5/5 in all extremities. Sensory grossly intact. Cerebellar exam normal. Normal gait. Psych: Awake, alert, with orientation to person, place and time. Behavior, mood, and affect are within normal limits. 23:51 Constitutional: The patient appears in no acute distress, alert, awake, uncomfortable. 23:51 Cardiovascular: Rate: tachycardic, Rhythm: regular, Pulses: no pulse deficits are appreciated, Heart sounds: normal, normal S1and S2, Edema: is not appreciated, JVD: is not appreciated. 23:51 Respiratory: the patient does not display signs of respiratory distress, Respirations: normal, Breath sounds: rhonchi, that are mild, are scattered, Respiratory rate: 18 Vital Signs: 20:53 BP 132 / 90; Pulse 132; Resp 24; Temp 100.7; Pulse Ox 98% on R/A; Weight 95.25 kg; ll1 Height 5 ft. 6 in. (167.64 cm); Pain 3/10; 22:26 BP 108 / 80; Pulse 107; Resp 20; Pulse Ox 95% on 4 lpm NC; 4 23:00 BP 105 / 75; Pulse 96; Resp 17; Temp 99.2(O); Pulse Ox 97% on 4 lpm NC; [facility] 23:56 BP 117 / 82; Pulse 89; Resp 18; Pulse Ox 99% on 4 lpm NC; [facility] 08/26 00:55 BP 126 / 92; Pulse 85; Resp 16; Pulse Ox 98% on 4 lpm NC; [facility] 08/25 20:53 Body Mass Index 33.89 (95.25 kg, 167.64 cm) ll1 MDM: 08/25 23:51 Differential diagnosis: Anemia Anxiety Reaction asthma, Bronchitis CHF exacerbation, 7 Chronic Obstructive Pulmonary Disease Myocardial Infarction pneumonia, Pneumothorax Psychogenic pulmonary edema, reactive airway disease. Data reviewed: vital signs, nurses notes, old medical records, lab test result(s), EKG, radiologic studies. Data interpreted: Pulse oximetry: on 3L(s) per nasal canula, is 97 %. Interpretation: acceptable. Counseling: I had a detailed discussion with the patient and/or guardian regarding: the historical points, exam findings, and any diagnostic results supporting the discharge/admit diagnosis, lab results, radiology results, the need for further work-up and treatment in the hospital. 23:56 Patient medically screened. [facility] 08/25 21:22 Order name: Amylase, Serum; Complete Time: 00:43 [facility] 08/25 21: Order name: Basic Metabolic Panel; Complete Time: 00:43 [facility] 08/25 21:22 Order name: Blood Culture Adult (2) [facility] 08/25 21:22 Order name: CBC with Diff; Complete Time: 22:26 [facility] 08/25 21:22 Order name: Ckmb; Complete Time: 00:43 [facility] 08/25 21:22 Order name: CPK; Complete Time: 00:43 [facility] 08/25 21: Order name: Lactate; Complete Time: 22:26 [facility] 08/25 21:22 Order name: LFT's; Complete Time: 00:43 [facility] 08/25 21:22 Order name: Lipase; Complete Time: 00:43 [facility] 08/25 21: Order name: Procalcitonin; Complete Time: 23:07 [facility] 08/25 21:22 Order name: Protime (+inr); Complete Time: 23:55 [facility] 08/25 21:22 Order name: Ptt, Activated; Complete Time: 00:43 [facility] 08/25 21:22 Order name: Troponin (emerg Dept Use Only); Complete Time: 00:43 [facility] 08/25 21:22 Order name: Urine Microscopic Only [facility] 08/25 21:22 Order name: Chest Single View XRAY; Complete Time: 22:26 [facility] 08/25 21:22 Order name: Accucheck; Complete Time: 21:58 [facility] 08/25 21:22 Order name: Cardiac monitoring; Complete Time: 22:25 [facility] 08/25 21:22 Order name: CT Head Brain wo Cont [facility] 08/25 23:12 Order name: COVID-19 [facility] 08/25 23:43 Order name: D-Dimer; Complete Time: 23:54 [facility] 08/25 23:45 Order name: PROBNP [facility] 08/25 23:57 Order name: NT PRO-BNP; Complete Time: 00:43 [facility] 08/26 00:52 Order name: SARS-COV-2 RT PCR; Complete Time: 01:20 [facility] 08/26 01:42 Order name: Urine Dipstick--Ancillary (enter results) [facility] 08/26 01:44 Order name: Urine Dipstick-Ancillary [facility] 08/25 21:22 Order name: EKG - Nurse/Tech; Complete Time: 22:25 [facility] 08/25 21:22 Order name: IV Saline Lock - Large Bore; Complete Time: 21:57 [facility] 08/25 21:22 Order name: Labs collected and sent; Complete Time: 21:57 [facility] 08/25 21:22 Order name: O2 Per Protocol; Complete Time: 21:57 [facility] 08/25 21:22 Order name: O2 Sat Monitoring; Complete Time: 21:57 [facility] Administered Medications: 21:45 Drug: NS 0.9% (30 ml/kg) 30 ml/kg Route: IV; Rate: bolus; Site: right antecubital; [facility] 08/26 00:45 Follow up: Response: No adverse reaction; IV Status: Completed infusion; IV Intake: 4 2857ml 08/25 21:45 Drug: Tylenol 650 mg Route: PO; jb4 22:45 Follow up: Response: No adverse reaction; Temperature is decreased jb4 22:36 Drug: LevaQUIN 500 mg Volume: 100 ml; Route: IVPB; Infused Over: 60 mins; Site: right jb4 antecubital; 23:36 Follow up: Response: No adverse reaction; IV Status: Completed infusion; IV Intake: jb4 100ml Disposition: 08/25/20 23:56 Hospitalization ordered by Jez Alonso for Inpatient Admission. Preliminary diagnosis are Near Syncope, Dyspnea, Hypoxia, Fever, Dehydration. - Bed requested for Telemetry/MedSurg (Inpatient). - Status is Inpatient Admission. - Condition is Stable. - Problem is new. - Symptoms have improved. Signatures: Dispatcher [employer] EDMS Karina Nye RN RN dw Sony Restrepo, PROGRAM PLANNER-C PROGRAM PLANNER-Cla1 hKris Moreau RN RN jb4 [facility] Kathleen Rodrigues RN RN ll1 Jayden Abreu MD MD mh7 Corrections: (The following items were deleted from the chart) 23:43 23:30 PROBNP+C.LAB.BRZ ordered. EDMS EDMS 23:43 23:30 D-DIMER+COAG.LAB.BRZ ordered. EDTN EDMS 08/26 00:54 08/25 23:56 Hospitalization Ordered by Jez Alonso for Inpatient Admission. dw Preliminary diagnosis is Near Syncope; Dyspnea; Hypoxia; Fever; Dehydration. Bed requested for Telemetry/MedSurg (Inpatient). Status is Inpatient Admission. Condition is Stable. Problem is new. Symptoms have improved. mh7 08/26 01:47 00:54 08/25/2020 23:56 Hospitalization Ordered by Jez Alonso for Inpatient Admission. Preliminary diagnosis is Near Syncope; Dyspnea; Hypoxia; Fever; Dehydration. Bed requested for Telemetry/MedSurg (Inpatient). Status is Inpatient Admission. Condition is Stable. Problem is new. Symptoms have improved. dw
--- NOTE | 2020-08-26 01:31 | P.HP ---
Certification for Inpatient Patient admitted to: Inpatient With expected LOS: >2 Midnights Patient will require the following post-hospital care: None Practitioner: I am a practitioner with admitting privileges, knowledge of patient current condition, hospital course, and medical plan of care. Services: Services provided to patient in accordance with Admission requirements found in Title 42 Section 412.3 of the Code of Federal Regulations <Sony Restrepo - Last Filed: 08/26/20 01:22> Patient History Date of Service: 08/26/20 Primary Care Provider: Gisele mott Reason for admission: Sepsis/dyspnea History of Present Illness: 75-year-old male with history of hypertension, hyperlipidemia presents to the emergency department for shortness of breath, weakness/incoordination. Patient reports that he was seen multiple times over the course of the last week for varying complaints, patient complaining of pain all throughout body and difficulty moving. Patient presented to the ED recently for bilateral lower extremity pain and abnormal sensation and had MRI which showed some moderately severe lower lumbar degenerative changes present most notable at L3/L4 and L4/L5. Patient also complained of shortness of breath and was prescribed a Z- Juan Pablo. Patient was to take his last dose of his Z-Juan Pablo today. During his evaluation in the emergency department patient was found to initially be tachycardic, tachypneic and febrile, code sepsis was called. While he was in the ER he did desaturate to 81% on room air and was put on nasal cannula. Labs significant for acute kidney injury that took place over the course of the last 3-4 days, mildly elevated troponin 0.07 and elevated CPK 796 patient appears very dehydrated. White blood cell count 12.0 D-dimer 1190, CT PE protocol was not performed due to elevated creatinine. Chest x-ray shows no acute findings. COVID negative. CT brain without acute findings. Patient was given IV fluid bolus 30 cc/kg and Levaquin for suspected respiratory infection. Blood pressure and heart rate improved. Appears to be severe sepsis with septic shock at this time. Will admit for further evaluation and management. - Past Medical/Surgical History Diabetic: No -: Hypertension -: rheumatoid arthritis -: carpal tunnel syndrome left wrist -: Hyperlipidemia -: right knee replaced 2014 -: tonsillectomy age 4 Psychosocial/ Personal History: Patient is to retired lives with his son and . - Family History Father -: Hypertension Notes: LIVER, COLON, PROSTATE CANCER - Social History Smoking Status: Former smoker Alcohol use: No CD- Drugs: No Caffeine use: Yes Place of Residence: Home <KaitamadaSony - Last Filed: 08/26/20 01:22> Date of Service: 08/26/20 <rejigustavo - Last Filed: 08/26/20 18:06> Allergies No Known Allergies Allergy (Verified 09/10/16 08:40) Home Medications: Amlodipine [Norvasc*] 10 mg PO DAILY 08/26/20 Ascorbic Acid [Vitamin C] 1 tab PO DAILY 08/26/20 Atorvastatin Calcium [Lipitor*] 20 mg PO DAILY 08/26/20 Docosahexanoic AC/Epa [Fish Oil 1,000 MG*] 1 cap PO DAILY 08/26/20 Multivitamin [Multivitamins] 1 tab PO DAILY 08/26/20 Orphenadrine Citrate [Orphenadrine Citrate ER] 100 mg PO BID PRN 08/26/20 Tramadol HCl/Acetaminophen [Ultracet Tablet] 1 tab PO Q6H PRN MDD ' 08/26/20 Review of Systems 10-point ROS is otherwise unremarkable General: Fever, Chills, Weakness, Malaise Respiratory: Cough, Shortness of Breath, SOB with Excertion Neurological: Weakness, Incoordination, As per HPI <Sony Restrepo - Last Filed: 08/26/20 01:22> Physical Examination - Physical Exam General: Alert, In no apparent distress HEENT: Atraumatic, PERRLA, Mucous membr. moist/pink Neck: Supple, 2+ carotid pulse no bruit, No LAD Respiratory: Clear to auscultation bilaterally, Normal air movement Cardiovascular: Regular rate/rhythm, Normal S1 S2 Capillary refill: <2 Seconds Gastrointestinal: Normal bowel sounds, No tenderness Musculoskeletal: No tenderness Integumentary: No rashes Neurological: Normal speech, Normal strength at 5/5 x4 extr, Normal tone, Sensation intact, Normal affect - Studies Laboratory Data (last 24 hrs) 08/25/20 21:45: PT 12.8 H, INR 1.09, APTT 25.5 08/25/20 21:45: WBC 12.0 H D, Hgb 16.1, Hct 47.9, Plt Count 222 08/25/20 21:45: Sodium 134 L, Potassium 4.0, BUN 22 H, Creatinine 1.80 H, Glucose 84, Total Bilirubin 1.2 H, AST 35, ALT 29, Alkaline Phosphatase 75, Amylase 79, Lipase 127 <Sony Restrepo - Last Filed: 08/26/20 01:22> - Studies Laboratory Data (last 24 hrs) 08/25/20 21:45: PT 12.8 H, INR 1.09, APTT 25.5 08/25/20 21:45: WBC 12.0 H D, Hgb 16.1, Hct 47.9, Plt Count 222 08/25/20 21:45: Sodium 134 L, Potassium 4.0, BUN 22 H, Creatinine 1.80 H, Glucose 84, Total Bilirubin 1.2 H, AST 35, ALT 29, Alkaline Phosphatase 75, Amylase 79, Lipase 127 <gustavo mendoza - Last Filed: 08/26/20 18:06> Assessment and Plan - Plan Assessment Severe sepsis with septic shock and acute respiratory failure with hypoxia secondary to suspected pneumonia Acute kidney injury Weakness/incoordination Hypertension Hyperlipidemia Plan Severe sepsis with septic shock and acute respiratory failure with hypoxia secondary to suspected pneumonia: Continue with vancomycin/cefepime at this time. Initial lactate within normal limits, will repeat this test. Monitor on telemetry. Oxygen as needed, titrate to saturation greater than 90%. Pulmonology consult in place. D-dimer was elevated will need to rule out pulm onary embolism, creatinine elevated at 1.8. Repeat BMP with morning labs, can obtain CT PE protocol if creatinine improves with hydration or may need to perform V/Q scan. Blood cultures obtained. DVT prophylaxis heparin 5000 units subcutaneous twice daily. Appreciate further input from pulmonology. Acute kidney injury: Patient received sepsis fluid bolus in the ED, continue with IV fluids overnight. Recheck BMP with morning labs. Patient appears very dry, anticipate clinical improvement with hydration. Weakness/incoordination: Patient with some difficulty with qudjez-uw-sqzr test and rdaq-va-txft on the right side. Patient reports that he had new onset difficulty walking in coordinating movements yesterday. Roofing Laborer equal and strong, no arm or leg drift or facial droop. Neurology consult in place. Appreciate further input from neurology. Physical therapy consult also in place for ambulation and recommendation. Hypertension: Hold blood pressure medications at this time due to hypotension. Continue medications as appropriate. Hyperlipidemia: Obtain and continue home medications when appropriate. Discharge Plan: Home Plan to discharge in: 72 Hours - Advance Directives Does patient have a Living Will: No Does patient have a Durable POA for Healthcare: Yes - Code Status/Comfort Care Code Status Assessed: Yes (Full code) Critical Care: No Time Spent Managing Pts Care (In Minutes): 55 <Sony Restrepo - Last Filed: 08/26/20 01:22> Physician Review: Patient Assessed, Agree with Above Assessment and Plan Physician Review Additional Text: Progressive weakness Monocytosis. Possible sepsis. Respiratory failure with hypoxia Pulmonary emphysema. Plan: Antibiotics Titrate oxygen Neurology consult <gustavo mendoza - Last Filed: 08/26/20 18:06>
[2020-08-26 01:44] LABS: Urine Blood TRACE (NEG); Urine Glucose NEGATIVE (NEG); Urine Protein NEGATIVE (NEG)
[2020-08-26 01:52] LABS: Urine Bacteria <20 /HPF (NONE SEEN); Urine RBC <5 /HPF (NONE SEEN); Urine Urothelial Cells <5 /HPF (NONE SEEN)
[2020-08-26 02:23] VITALS: BMI 34.6
[2020-08-26] MEDS ORDERED: NA CHLORIDE 0.9% 1,000 ML IV SCH (03:01)
[2020-08-26] MEDS ORDERED: ONDANSETRON 4 MG/2 ML VIAL IV PRN (03:01)
[2020-08-26] MEDS ORDERED: VANCOMYCIN/NS 1 gm 1 GM/250 ML BAG IVPB SCH (03:01)
[2020-08-26] MEDS ORDERED: ACETAMINOPHEN 500 MG TAB PO PRN (03:01)
[2020-08-26] MEDS ORDERED: VANCOMYCIN 2 GM in NA CHLORIDE 0.9% 500 ML IVPB SCH (04:00)
[2020-08-26] MEDS ORDERED: CEFEPIME 1 GM/VIAL IVP ONE (04:00)
[2020-08-26] MEDS ORDERED: WATER FOR INJ,STERILE 10 ML IV ONE (04:00)
[2020-08-26] MEDS ORDERED: VANCOMYCIN 1 GM/VIAL ONE ×2 (04:08→04:10)
[2020-08-26] MEDS ORDERED: CEFEPIME 1 GM/100 ML BAG IV ONE (04:08)
[2020-08-26 04:09] LABS: Absolute Lymphocytes (CBC) 1.9 K/uL (0.7-4.9); Basophils % 0.6 % (0-1.3); Hematocrit 42.5 % (39.6-49.0); Lymphocytes % 19.8 % (15.3-44.8); MPV 9.5 fL (7.6-11.3); RBC Red Blood Cell Count 4.82 M/uL (4.33-5.43)
[2020-08-26] MEDS ORDERED: NA CHLORIDE 0.9% 250 ML ONE (04:19)
[2020-08-26 04:35] LABS: Albumin 3.6 g/dL (3.4-5.0); Bilirubin Total 1.1 mg/dL (0.2-1.0); Magnesium 2.8 mg/dL (1.8-2.4); Potassium 4.3 mmol/L (3.5-5.1); Protein, Total 6.6 g/dL (6.4-8.2); Thyroid Stimulating Hormone 1.2 uIU/mL (0.360-3.740)
--- NOTE | 2020-08-26 04:37 | P.INFCA ---
Sepsis Focused Assessment - Focused Assessment Complete? Sepsis Focused Assessment Completed?: Yes - Sepsis Screen Result Severe Sepsis: Positive Septic Shock: Negative - Evaluation Current stage of sepsis: Severe sepsis - Vital Signs Reviewed: Yes - Examination Date exam was performed: 08/26/20 Time exam was performed: 04:20 Heart: Regular rate/rhythm (Mild tachycardia rate 105), S1, S2 Lungs: Clear bilaterally Peripheral pulses: 3+ Normal Peripheral pulse location: Radial Skin examination: Normal turgor
[2020-08-26 05:16] LABS: Blood Morphology Comment NOTED (NOT SEEN); Ovalocytes 1+; Platelet Estimate ADEQ
--- NOTE | 2020-08-26 08:51 | RAD REPORT ---
EXAM DESCRIPTION: CT - Chest For Pe Angio - 08/26/2020 6:44 am CLINICAL HISTORY: Chest pain. R/O PE COMPARISON: No comparisons TECHNIQUE: CT angiogram of the pulmonary arteries was performed with MIP. All CT scans are performed using dose optimization technique as appropriate and may include automated exposure control or mA/KV adjustment according to patient size. FINDINGS: No evidence of pulmonary thromboembolism. No acute aortic finding demonstrated. Mild linear atelectasis is present in both lung bases. The lungs are mildly emphysematous without acu te infiltrate suspected. No significant pericardial or pleural fluid. 19 mm right adrenal nodule is seen, most likely an adeno ma. No concerning bony finding. IMPRESSION: No evidence of pulmonary thromboembolism.
[2020-08-26] MEDS ORDERED: INFLUENZA VACCINE (for 3y+) 0.5 ML DOSE IMVAC ONE (09:00)
[2020-08-26] MEDS ORDERED: CEFEPIME/SWI 1gm 10 ML IVP SCH ×2 (09:00)
[2020-08-26] MEDS ORDERED: CEFEPIME 1 GM/VIAL IV SCH (09:00)
[2020-08-26] MEDS ORDERED: HEPARIN 5000 UNIT/ML 1 ML VIAL SQ SCH (09:00)
[2020-08-26] MEDS ORDERED: ARFORMOTEROL TARTRATE 15 MCG/2 ML VIAL.NEB NEB SCH (12:03)
--- NOTE | 2020-08-26 12:05 | P.CNS ---
Date of Consult: 08/26/20 Primary Care Provider: Gisele mott Chief Complaint: Hypoxemia History of Present Illness: Patient is 75 years of age Hypertension hyperlipidemia complaining of shortness of breath for the past 7 days Geeta complaining of pain all over found to have a degenerative disc disease a he initially came to the emergency room with pain in the groin patient is clearly hypoxic was admitted to the floor CT angiogram is completely normal Allergies No Known Allergies Allergy (Verified 09/10/16 08:40) Home Medications: Amlodipine [Norvasc*] 10 mg PO DAILY 08/26/20 Ascorbic Acid [Vitamin C] 1 tab PO DAILY 08/26/20 Atorvastatin Calcium [Lipitor*] 20 mg PO DAILY 08/26/20 Docosahexanoic AC/Epa [Fish Oil 1,000 MG*] 1 cap PO DAILY 08/26/20 Multivitamin [Multivitamins] 1 tab PO DAILY 08/26/20 Orphenadrine Citrate [Orphenadrine Citrate ER] 100 mg PO BID PRN 08/26/20 Tramadol HCl/Acetaminophen [Ultracet Tablet] 1 tab PO Q6H PRN MDD ' 08/26/20 - Past Medical/Surgical History Diabetic: No -: Hypertension -: rheumatoid arthritis -: carpal tunnel syndrome left wrist -: Hyperlipidemia -: right knee replaced 2014 -: tonsillectomy age 4 Psychosocial/ Personal History: Patient is to retired lives with his son and . - Family History Father Medical History: Hypertension Notes: LIVER, COLON, PROSTATE CANCER - Social History Alcohol use: No CD- Drugs: No Caffeine use: Yes Place of Residence: Home Review of Systems General: Weakness Respiratory: Shortness of Breath Musculoskeletal: Back Pain Physical Examination Temp Pulse Resp BP Pulse Ox 97.6 F 102 H 18 163/82 H 91 08/26/20 08:00 08/26/20 08:00 08/26/20 08:00 08/26/20 08:00 08/26/20 08:00 General: Alert, In no apparent distress, Oriented x3 HEENT: Atraumatic Neck: Supple Respiratory: Clear to auscultation bilaterally, Diminished Cardiovascular: No edema, Regular rate/rhythm Gastrointestinal: Normal bowel sounds, Soft and benign Laboratory Data (last 24 hrs) 08/25/20 21:45: PT 12.8 H, INR 1.09, APTT 25.5 08/25/20 21:45: WBC 12.0 H D, Hgb 16.1, Hct 47.9, Plt Count 222 08/25/20 21:45: Sodium 134 L, Potassium 4.0, BUN 22 H, Creatinine 1.80 H, Glucose 84, Total Bilirubin 1.2 H, AST 35, ALT 29, Alkaline Phosphatase 75, Amylase 79, Lipase 127 - Problems (1) Respiratory failure Current Visit: Yes Status: Acute Plan: Patient is 75 years of age admitted with the back pain radiating to his crying he may have degenerative joint disease the pack been hypoxic more short of breath CT scan no evidence of pulmonary emboli and no evidence of miles virus infection patient quit smoking a very long time ago CBCs unremarkable mildly elevated creatinine not sure why he is hypoxic a needs an echocardiogram to rule out shunt spirometry trial of bronchodilators blood cultures are pending Dc IV fluids patient's blood pressure is little elevated doubt sepsis Qualifiers: Chronicity: unspecified
--- NOTE | 2020-08-26 12:30 | RAD REPORT ---
EXAM DESCRIPTION: Head Brain Wo Cont CLINICAL HISTORY: 75 years Male SYNCOPE COMPARISON: None TECHNIQUE: Images were obtained in axial, sagittal, and coronal planes. This exam was performed according to our departmental dose-optimization program which includes use of Automated Exposure Control, adjustment of the mA and/or kV according to patient size and/or use o f iterative reconstruction technique. FINDINGS: Ventricular system appears mildly. Mild prominence of the cortical sulci. No abnormal areas of increased attenuation seen. No extra-axial fluid collection is noted. No evidence for skull fracture. Symmetric aeration of the mastoid air cells bilaterally. IMPRESSION: No acute intracranial abnormality. No evidence for hemorrhage, mass lesion, or large acu te infarction. Age-appropriate changes. Electronically signed by: Claribel Novak MD 08/25/2020 10:40 PM LOAN PROCESSOR Due to temporary technical issues with the PACS/Fluency reporting system, reports are being signed by the in house radiologist without review as a courtesy to ensure prompt reporting. The interpreting r adiologist is fully responsible for the content of the report.
[2020-08-26] MEDS ORDERED: BISACODYL 10 MG RECTAL SUPP PR ONE (12:48)
[2020-08-26] MEDS: METHYLPREDNISOLONE 40 MG INJ IV SCH ×2 (12:55→20:13)
[2020-08-26 13:06] LABS: Arterial Blood Carboxyhemoglob 1.1 % (0-1.5); Blood Gas Oxyhemoglobin 87.5 % (94-97); Blood O2 Saturation 89.5 % (92-98.5)
--- NOTE | 2020-08-26 15:30 | P.PN ---
Subjective Date of Service: 08/26/20 Primary Care Provider: Gisele mott Chief Complaint: Hypoxemia Patient complaining of weakness in both lower and upper limbs, worse in the lower limbs, associated symmetrical parasthesia in both lower and upper limbs. He is also complaining of generalized joint pains and constipation. Patient was hypoxic in the ED and currently on 2 L of oxygen by nasal cannula. CTA thorax reviewed and reporting mild emphysematous changes. CBC shows monocytosis indicating possible viral infection. COVID 19 rapid test is negative. He had m ild leukocytosis which has resolved. I doubt patient has sepsis. Given patient neurologic symptoms, he needs assessment for acute polyneuropathy. Previous MRI of the lumbar spine done on 08/22/2020 results reviewed and reporting Moderately severe lower lumbar degenerative changes are present, most notable at L3-4 and L4-5. With moderate the foraminal and central canal stenosis. He needs a lumbar puncture but given his moderate severe degenerative disease of the lumbar spine, the lumbar puncture need to be performed by fluoroscopy guidance. No radiology is available today to perform the procedure. Neurology is also not available for the next few days. 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 Patient will need neurology evaluation, fluoroscopy guided lumbar puncture for CSF studies, EMG. Transferred to [facility] initiated. Physical Examination - Vital Signs Temperature: 99.8 F Blood Pressure: 141/75 Pulse: 110 Respirations: 18 Pulse Ox (%): 94 - Studies Laboratory Data (last 24 hrs) 08/25/20 21:45: PT 12.8 H, INR 1.09, APTT 25.5 08/25/20 21:45: WBC 12.0 H D, Hgb 16.1, Hct 47.9, Plt Count 222 08/25/20 21:45: Sodium 134 L, Potassium 4.0, BUN 22 H, Creatinine 1.80 H, Glucose 84, Total Bilirubin 1.2 H, AST 35, ALT 29, Alkaline Phosphatase 75, Amylase 79, Lipase 127
--- NOTE | 2020-08-26 16:32 | P.DS ---
Admission Date: 08/25/20 Discharge Date: 08/26/20 Primary Care Provider: [facility] Reason for Admission: Hypoxemia Consultations: Pulmonary-Dr. Quintanilla Brief History of Present Illness: 75-year-old gentleman with a history of hypertension and hyperlipidemia presented to the emergency department with a complaining weakness in his upper and lower extremities which started about 4 days ago. Patient stated he was able to walk and go about his activities days ago. He stated he fell 4 times in his bathroom 2 days ago and this morning could not even get out of bed. He reports progressive weakness and now experiencing numbness in both his lower limbs and upper limbs as well as stiffness in his fingers. 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 Patient was discharged home but his weakness progressed and therefore presented to the emergency department today. He had low-grade fever with a temperature of 100.7 in the ED, mild leukocytosis and was hypoxemic on room air. CTA thorax demonstrated mild emphysema, no infiltrate. CBC demonstrated mild leukocytosis and significant monocytosis. COVID 19 test was negative. Patient was given antibiotics and admitted for further management. Hospital Course: Patient was complaining of constipation which did not respond to Dulcolax deluna ppository. Leukocytosis has resolved. Patient seen and evaluated by pulmonary. He was put on IV cefepime and vancomycin for possible sepsis. 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 He needs a lumbar puncture by fluoroscopic guidance for CSF studies which is not available here today. He also needs neurology consultation for evaluation which is not available today. Patient is concerned about his progressive weakness. He needs further evaluation with CSF study and EMG and therefore need to be transferred to a tertiary center. Transferred to [facility] was initiated. i spoke to the neurologist Dr. Cruz who accepted patient for transfer. Condition is clinically stable for transfer. Vital Signs/Physical Exam: Temp Pulse Resp BP Pulse Ox 99.8 F 110 H 18 141/75 H 94 08/26/20 15:38 08/26/20 15:38 08/26/20 15:38 08/26/20 15:38 08/26/20 15:38 General: Alert, In no apparent distress HEENT: Mucous membr. moist/pink Neck: Supple, JVD not distended Respiratory: Clear to auscultation bilaterally, Normal air movement Cardiovascular: No edema, Regular rate/rhythm, Normal S1 S2 Gastrointestinal: Normal bowel sounds, Soft and benign, Non-distended, No tenderness Musculoskeletal: No swelling, No tenderness Neurological: Sensation intact, Other (Power 4/5 bilateral lower extremities, 5/5 bilateral upper extremities) Laboratory Data at Discharge: WBC 9.4 K/uL (4.3-10.9) D 08/26/20 03:36 Hgb 14.4 g/dL (13.6-17.9) 08/26/20 03:36 Hct 42.5 % (39.6-49.0) 08/26/20 03:36 Plt Count 187 K/uL (152-406) 08/26/20 03:36 PT 12.8 SECONDS (9.5-12.5) H 08/25/20 21:45 INR 1.09 08/25/20 21:45 APTT 25.5 SECONDS (24.3-36.9) 08/25/20 21:45 Sodium 140 mmol/L (136-145) 08/26/20 03:36 Potassium 4.3 mmol/L (3.5-5.1) 08/26/20 03:36 BUN 21 mg/dL (7-18) H 08/26/20 03:36 Creatinine 1.38 mg/dL (0.55-1.3) H 08/26/20 03:36 Glucose 88 mg/dL (74-106) 08/26/20 03:36 Magnesium 2.8 mg/dL (1.8-2.4) H 08/26/20 03:36 Total Bilirubin 1.1 mg/dL (0.2-1.0) H 08/26/20 03:36 AST 31 U/L (15-37) 08/26/20 03:36 ALT 24 U/L (12-78) 08/26/20 03:36 Alkaline Phosphatase 63 U/L (45-117) 08/26/20 03:36 Troponin I 0.07 ng/mL (0.0-0.045) H 08/26/20 09:56 Amylase 79 U/L (25-115) 08/25/20 21:45 Lipase 127 U/L (73-393) 08/25/20 21:45 Home Medications: Amlodipine [Norvasc*] 10 mg PO DAILY 08/26/20 Ascorbic Acid [Vitamin C] 1 tab PO DAILY 08/26/20 Atorvastatin Calcium [Lipitor*] 20 mg PO DAILY 08/26/20 Docosahexanoic AC/Epa [Fish Oil 1,000 MG*] 1 cap PO DAILY 08/26/20 Multivitamin [Multivitamins] 1 tab PO DAILY 08/26/20 Orphenadrine Citrate [Orphenadrine Citrate ER] 100 mg PO BID PRN 08/26/20 Tramadol HCl/Acetaminophen [Ultracet Tablet] 1 tab PO Q6H PRN MDD ' 08/26/20 Followup: Unknown,U [Primary Care Provider] - Time spent managing pt's care (in minutes): 45
[2020-08-26 16:33] VITALS: O2SAT 96
[2020-08-26 16:40] VITALS: BP 139/68; TEMP 98.9
[2020-08-27] MEDS ORDERED: VANCOMYCIN 1.75 GM in NA CHLORIDE 0.9% 500 ML IVPB SCH (06:00)
[2020-08-27] MEDS ORDERED: ENOXAPARIN 40 MG/0.4 ML SQ SCH (09:00)
== END 2020-08-26 20:21 | disposition short-term general hospital (02) | DRG 871 ==
LOC: ER 20:25 → ERHOLD 23:43 → 2ND 08-26 01:24
PROVIDERS: ADMIT Internal Medicine; ATTEND Internal Medicine
DX: A41.9 Sepsis, unspecified organism (principal); R65.21 Severe sepsis with septic shock; J96.01 Acute respiratory failure with hypoxia; N17.9 Acute kidney failure, unspecified; J84.9 Interstitial pulmonary disease, unspecified; G61.0 Guillain-Barre syndrome; I10 Essential (primary) hypertension; E78.5 Hyperlipidemia, unspecified; E86.0 Dehydration; K59.00 Constipation, unspecified; M51.36 Other intervertebral disc degeneration, lumbar region; M19.90 Unspecified osteoarthritis, unspecified site; D72.821 Monocytosis (symptomatic); J43.9 Emphysema, unspecified; R10.30 Lower abdominal pain, unspecified; W18.30XA Fall on same level, unspecified, initial encounter; Z91.81 History of falling; Z96.651 Presence of right artificial knee joint; Z87.891 Personal history of nicotine dependence; Z79.899 Other long term (current) drug therapy; Z20.828 Contact with and (suspected) exposure to other viral communicable diseases
CPT/HCPCS: 36415; 70450; 71045; 71275; 72148; 80048; 80053; 80076; 81003; 81015; 82150; 82550; 82553; 82805; 83605; 83690; 83735; 83880; 84145; 84439; 84443; 84484; 85025; 85379; 85610; 85652; 85730; 87040; 93005; 94010; 94640; 96365; 96366; 96374; 96375; 97110; 97161; 99284; 99285; J0692; J1100; J1644; J2270; J2405; J2920; J3370; J7030; J7040; J7050; J7605; Q9967; U0003